=== PATIENT | male | born 1990 | race Caucasian/White ===

== ENCOUNTER 2020-08-03 08:43 | Day surgery (SDC) | payer OTHER ==
[2020-07-29 10:41] LABS: LYMPHOCYTES # (AUTO) 1.5 X10'3 (1.1-4.8); LYMPHOCYTES % (AUTO) 16.8 % (21-51); MEAN PLATELET VOLUME 8.4 FL (7.4-10.4)
[2020-07-29 10:43] LABS: BASOPHILS # (AUTO) 0.1 X10'3 (0-0.2); BASOPHILS % (AUTO) 0.8 % (0-1); EOSINOPHILS # (AUTO) 0.2 X10'3 (0-0.9); EOSINOPHILS % (AUTO) 2.3 % (0-6); MEAN CORPUSCULAR HEMOGLOBIN 28.4 PG (27.0-31.0); MEAN CORPUSCULAR HGB CONC 34.4 g/dL (33.0-36.5); MEAN CORPUSCULAR VOLUME 82.6 FL (78-98); MONOCYTES # (AUTO) 0.8 X10'3 (0-0.9); MONOCYTES % (AUTO) 8.4 % (2-12); NEUTROPHILS # (AUTO) 6.6 X10'3 (1.8-7.7); NEUTROPHILS % (AUTO) 71.7 % (42-75); PRE OP HEMATOCRIT 45.2 % (42.0-52.0); PRE OP HEMOGLOBIN 15.5 g/dL (14.0-17.9); PRE OP PLATELET COUNT 313 X10'3 (140-440); RED BLOOD COUNT 5.48 X10'6 (4.70-6.10); RED CELL DISTRIBUTION WIDTH 12.9 % (11.5-14.5)
[2020-07-29 10:51] LABS: PRE OP INR 1.1 INR; PRE OP PROTIME 11.1 SECONDS (9.0-12.0)
[2020-07-29 10:53] LABS: ALBUMIN 4.4 G/DL (3.4-5.0); ALBUMIN/GLOBULIN RATIO 1.2 (1.1-1.5); ALKALINE PHOSPHATASE 81 IU/L (46-116); BLOOD UREA NITROGEN 21 MG/DL (7-18); BUN/CREATININE RATIO 19.6 (5.4-32.0); CALCIUM 9.6 MG/DL (8.5-10.1); CHLORIDE 102 MMOL/L (99-107); CREATININE 1.07 MG/DL (0.60-1.10); PRE OP ALT 33 U/L (30-65); PRE OP ANION GAP 11 (8-16); PRE OP AST 19 U/L (10-37); PRE OP BILIRUB, TOTAL 0.7 MG/DL (0.0-1.0); PRE OP GLUCOSE 108 MG/DL (70-104); PRE OP SODIUM 139 MMOL/L (135-145); TOTAL CARBON DIOXIDE 25.7 MMOL/L (24-32); TOTAL PROTEIN 8.1 G/DL (6.4-8.2); eGFR 81 ML/MIN
[~2020-08-03] VITALS: Ht 177.8 cm; Wt 108.9 kg
[2020-08-03] VITALS (10 sets, daily range): BP systolic 124–138; BP diastolic 66–86
[~2020-08-03 08:43] MED LIST: LIDOcaine 1% W/epiNEPHrine 1:100,000 20ml vial ONE; LISI20TA28 PO; cefTAZidime 1gm inj ONE; cocaine 4% topical solution 4ml bottle ONE; famotidine 20mg tablet PO ONE; mupirocin 2% ointment 22GM ONE; oxymetazoline 15 ML nasal spray NS ONE; oxymetazoline 15 ML nasal spray NS PRN; ringers solution, lacted 1,000 ML IV SCH
[2020-08-03] MEDS ORDERED: fentaNYL/PF 50MCG/1 ML 2ML syringe ONE ×2 (10:29→10:52)
[2020-08-03] MEDS ORDERED: midazolam 1 mg/ML 2ml injection ONE (10:29)
[2020-08-03] MEDS ORDERED: sevoflurane 250ml liquid IH ONE (10:39)
[2020-08-03] MEDS ORDERED: cefTAZidime 1gm inj ONE (10:53)
[2020-08-03] MEDS ORDERED: hydrALAZINE 20mg/ml inj. IV PRN (11:15)
[2020-08-03] MEDS ORDERED: morphine 4 MG/ML inj SYRINge IV PRN (11:15)
[2020-08-03] MEDS ORDERED: morphine 2 MG/ML inj. syringe IV PRN (11:15)
[2020-08-03] MEDS ORDERED: labetalol 20mg/4ml (5mg/ml) syringe IV PRN (11:15)
[2020-08-03] MEDS ORDERED: ondansetron/PF 4mg/2ml inj IV PRN (11:15)
[2020-08-03] MEDS ORDERED: ringers solution, lacted 1,000 ML IV SCH (11:15)
[2020-08-03] MEDS ORDERED: acetaminophen 1,000mg/100ml IV 100 ML IV PRN (11:15)
[2020-08-03] MEDS ORDERED: meperidine/PF 25mg/ml syringe IV PRN ×2 (11:15)
[2020-08-03] MEDS ORDERED: ondansetron/PF 4mg/2ml inj ONE (11:17)
[2020-08-03] MEDS ORDERED: propofol inj 20 ML IV ONE (11:17)
[2020-08-03] MEDS ORDERED: dexamethasone sod phosphate 4mg/ml inj. ONE (11:17)
[2020-08-03] MEDS ORDERED: LIDOcaine 2% (20mg/ml) 5ml vial ONE (11:17)
[2020-08-03] MEDS ORDERED: acetaminophen 1,000mg/100ml IV 100 ML IV ONE (11:50)
[2020-08-03] MEDS ORDERED: meperidine/PF 25mg/ml syringe ONE (11:52)
--- NOTE | 2020-08-03 12:20 | NUR ---
PT ARRIVED FROM OR VIA GURTIMMY WITH DR GARCIA FROM ANESTHESIA-REPORT GIVEN, VSS, WAKING UP, COTTONOIDS IN PLACE BILATERALLY WITH CAST TAPED OVER NOSE- NO BLEEDING AT PRESENT, PIV 22G RIGHT HAND-LR RUNNING AT 50ML/HR.
[2020-08-03] MEDS ORDERED: mupirocin 2% nasal ointment 1gm UD NS SCH (13:00)
[2020-08-03] MEDS ORDERED: salt irrigation nasal spray 45 ML SPRAY NS PRN (13:20)
--- NOTE | 2020-08-03 14:00 | NUR ---
PT DOING WELL, VSS, COTTONOIDS REMOVED-MUSTACHE DRESSING APPLIED WITH MINIMAL BLEEDING, PAIN BETTER 07/17 AFTER DEMEROL GIVEN, PT GETTING DRESSED, GIVEN DISCHARGE INSTRUCTIONS AND DEMONSTRATED HOME CARE-ALL QUESTIONS ANSWERED, SENT WITH ALL NECESSARY ITEMS, PIV D/CD-CANULA INTACT, PT TAKEN VIA W/C WITH ALL BELONGINGS TO FAMILY FOR TRANSPORT HOME
== END 2020-08-03 14:00 | disposition home or self-care (01) ==
LOC: PAS 08:43
PROVIDERS: ATTEND Otolaryngology
DX: J34.2 Deviated nasal septum (principal); J34.3 Hypertrophy of nasal turbinates; J34.89 Other specified disorders of nose and nasal sinuses; Z20.822 Contact with and (suspected) exposure to COVID-19; I10 Essential (primary) hypertension; E66.9 Obesity, unspecified; Z68.34 Body mass index [BMI] 34.0-34.9, adult; Z79.899 Other long term (current) drug therapy; Z79.01 Long term (current) use of anticoagulants; Z98.890 Other specified postprocedural states
CPT/HCPCS: 30140; 30420; 36415; 80053; 82948; 85025; 85576; 85610; 85730; 87635; 93005; A6402; C9250; C9803; J0131; J0713; J1100; J2001; J2175; J2250; J2405; J2704; J3010; J7040; U0003; U0005; A4618; A7000; J7120